=== PATIENT | male | born 1975 | race Caucasian/White ===

== ENCOUNTER 2016-09-25 14:23 | Emergency (ER) | payer OTHER ==
[~2016-09-25 14:23] MED LIST: LOVENOX40 MG/0.4 INJ; NO MEDICATIONS; PERCOCET 10/3251 TAB PO
== END 2016-09-25 15:16 | disposition home or self-care (01) ==
LOC: SED 14:23 → EDBD 15:12 → SED 15:16
DX: H10.9 Unspecified conjunctivitis (principal); R09.81 Nasal congestion; E66.9 Obesity, unspecified; Z87.891 Personal history of nicotine dependence
CPT/HCPCS: 99283

== ENCOUNTER 2016-10-08 05:34 | Emergency (ER) | payer OTHER ==
[~2016-10-08] VITALS: Ht 180.3 cm; Wt 159.1 kg
--- NOTE | ~2016-10-08 | US85 ---
[facility] A Service of [facility] RADIOLOGY TEXT RESULTS PATIENT: SHAWNA MAYFIELD LOCATION: SED : 79 UNIT #: [id number] AGE: [address]: Bassem Harrison MD SEX: M ORDER DR: [id number] [place] [id number] MR#: [id number] Acc #: [id number] NAME: SHAWNA MAYFIELD : 1975 SEX: M STUDY DATE/TIME: 10/08/2016 7:59 UNIT: SED ROOM: STUDY DESCRIPTION: [facility] Attending Physician: Bassem Harrison M.D. Ordering Physician: Rafi Card M.D. Primary Care Physician: Cynthia Cardenas A.P.R.N. MEDICAL IMAGING REPORT This report is preliminary unless electronic signature is present. EXAM Ultrasound lower extremity venous Doppler, unilateral. Limited study. HISTORY Left lower extremity pain, swelling and discoloration for 4 years. Previously would come and go, but currently the patient's swelling has been constant for 3 days. No known history of clot. COMMENT Real time ultrasonography of the left lower extremity deep venous system performed with 2-D billingsley-scale compression imaging color-flow Doppler imaging and waveform analysis. Normal flow and compressibility is seen throughout the left lower extremity deep venous system. Greater saphenous veins unremarkable. IMPRESSION No evidence for acute appearing deep venous thrombosis left lower extremity deep venous system. Dictated by... Celeste Ruff M.D. THIS IS AN ELECTRONICALLY VERIFIED REPORT Celeste Ruff M.D. at 10/09/2016 9:27 AM MILLIE/zofia TD: 10/09/2016 05:50 JOB #: [id number] MEDICAL IMAGING REPORT [facility] A Service of [facility] RADIOLOGY TEXT RESULTS PATIENT: SHAWNA MAYFIELD LOCATION: SED : 79 UNIT #: [id number] AGE: [address]: Bassem Harrison MD SEX: M ORDER DR: Page 1 of 1
== END 2016-10-08 09:20 | disposition home or self-care (01) ==
LOC: SED 05:34
DX: S86.912A Strain of unspecified muscle(s) and tendon(s) at lower leg level, left leg, initial encounter (principal); X58.XXXA Exposure to other specified factors, initial encounter
CPT/HCPCS: 93971; 99283